=== PATIENT | male | born 1990 | race Caucasian/White ===

== ENCOUNTER 2016-07-26 09:41 | Emergency (ER) | payer SELFPAY ==
--- NOTE | 2016-07-30 11:27 | ER ---
ADMIT: 07/26/2016 RM/LOC: ER [facility] MR#: [id number] [address] [facility] [address] [place] [id number] [place] [address] Emergency Room Report SEX: M AGE: 25 : 1990 DATE: 07/26/2016 ADDENDUM: CHIEF COMPLAINT: Cough. HISTORY OF PRESENT ILLNESS: This 25-year-old, who smokes marijuana all day long, also smokes tobacco 2 packs daily. For the last 2 or 3 days, he just feels like he has had more of a productive cough, feels like his chest is tight and may or may not have a fever at one time. Here he is just a little bit anxious, no acute distress. His sats were 98%-100% on room air. He is not tachycardic. He is slightly tachypneic at times but just when he more or starts to hyperventilate and he even admits that he is a little bit anxious while being here. Chest x-ray is negative, over-read by Dr. Ortiz. I did give him a Xopenex neb, he said this actually made him feel quite a bit better. He has been using someone else's albuterol nebulizer. I told him I would give him the albuterol inhaler in case he feels like he cannot catch his breath. I told him to try to quit smoking tobacco, try to either quit or eliminate smoking marijuana. I feel like this is just exacerbating his symptoms. CLINICAL IMPRESSION: 1. Bronchitis. 2. Anxiety. 3. Tobacco and marijuana usage. CHERYL Brody / Jason Ortiz MD / fercho JOB #: [id number] CC: Jason Ortiz MD, Attending Physician UNKNOWN, Family Physician
== END 2016-07-26 11:47 | disposition home or self-care (01) ==
LOC: ER 09:41
DX: J40 Bronchitis, not specified as acute or chronic (principal); F41.9 Anxiety disorder, unspecified; F12.10 Cannabis abuse, uncomplicated; F17.210 Nicotine dependence, cigarettes, uncomplicated; Z79.899 Other long term (current) drug therapy

== ENCOUNTER 2016-08-28 18:14 | Emergency (ER) | payer SELFPAY ==
--- NOTE | 2016-09-24 21:25 | ER ---
ADMIT: 08/28/2016 RM/LOC: ER [facility] MR#: [id number] [address] [address] [place] [address] Emergency Room Report SEX: M AGE: 25 : 1990 DATE: 08/28/2016 HISTORY OF PRESENT ILLNESS: A 25-year-old comes to the Emergency Department with complaints of unable to catch his breath. He is smoking pot when this sensation started. He describes a tingling around his mouth, his finger tips, and his toes. See T-sheet for history and physical. The patient is diagnosed with anxiety. He was given Benadryl IM in the Emergency Department with resolution of his symptoms. An ABG was done, which showed pH of 7.54, pCO2 of 21, PO2 of 109. The patient was instructed to stop smoking pot and use Benadryl 50 mg every 8 hours if these symptoms were to return. He was also encouraged to find a primary doctor for followup. DIAGNOSIS: Anxiety and hyperventilation. Oscar Voss MD/ fercho JOB #: [id number] CC: Jason Ortiz MD, Attending Physician Micky Carrillo MD, Family Physician
== END 2016-08-28 19:30 | disposition home or self-care (01) ==
LOC: ER 18:14
DX: F41.9 Anxiety disorder, unspecified (principal); F17.210 Nicotine dependence, cigarettes, uncomplicated

== ENCOUNTER 2016-11-20 17:01 | Emergency (ER) | payer SELFPAY ==
--- NOTE | 2016-12-01 16:41 | ER ---
ADMIT: 11/20/2016 RM/LOC: ER [facility] MR#: [id number] [address] [address] [place] [address] Emergency Room Report SEX: M AGE: 26 : 1990 DATE: 11/20/2016 This 26-year-old comes with dysuria for the past 3-4 weeks. Denies sexual activity, but then later said, well maybe he was with somebody. In any event, his UA was unremarkable. I elected to treat him as STD, given him Rocephin and azithromycin. Encouraged to follow up with his primary doctor this week if symptoms persist. Oscar Voss MD/ fercho JOB #: [id number] CC: Jason Ortiz MD, Attending Physician
== END 2016-11-20 18:35 | disposition home or self-care (01) ==
LOC: ER 17:01
DX: R30.0 Dysuria (principal); F17.210 Nicotine dependence, cigarettes, uncomplicated; Z86.19 Personal history of other infectious and parasitic diseases

== ENCOUNTER 2017-02-07 18:00 | Emergency (ER) | payer SELFPAY ==
--- NOTE | 2017-02-08 11:00 | ER ---
ADMIT: 02/07/2017 RM/LOC: ER [facility] MR#: [id number] [address] [address] [place] [address] Emergency Room Report SEX: M AGE: 26 : 1990 DATE: 02/07/2017 CHIEF COMPLAINT: Left testicle pain. HISTORY OF PRESENT ILLNESS: A 26-year-old male presents to the ER with complaints of left testicular pain. States that his pain started approximately 4 days ago. He was at [facility]'s ER yesterday with similar complaints as well as dysuria. They ran a urine, GC chlamydia and all came back unremarkable. He thus currently is being treated for an outbreak of genital herpes with acyclovir. Continues to complain of left testicle pain and swelling yesterday. States he was to get an ultrasound yesterday at [facility], however, he left as he was frightened. Returned home and started googling things. States this happened in the past. He was able to reduce it himself, has never had surgery before. MEDICATIONS: Acyclovir. COURSE IN THE EMERGENCY ROOM: The patient was seen and examined. GENERAL: Afebrile and nontoxic, in mild amount of distress. He is somewhat anxious. GENITALIA: On genital inspection, he is circumcised. He does have an active herpes outbreak. He has left testicular and epididymal tenderness. CHEST: Clear. HEART: Regular. EXTREMITIES: Nontender. There is no pedal edema. SKIN: Warm and dry. Testicular Doppler was obtained, shows no torsion. He has good blood flow, some epididymal cysts. ADMIT: 02/07/2017 RM/LOC: ER [facility] MR#: [id number] [address] [address] [place] [address] Emergency Room Report SEX: M AGE: 26 : 1990 Given his negative GC chlamydia testing at [facility] yesterday, we will empirically treat for epididymitis. Start Cipro. Put him off work for today and tomorrow. Follow up with primary care provider if he is not improving. IMPRESSION: Left epididymitis. DISPOSITION: Discharged home. Ciprofloxacin 500 mg p.o. b.i.d. for 7 days. Elevate the scrotum. Wear supportive underwear. He is to follow up with primary care if not improving. Certainly return with worsening signs or symptoms. Tylenol or Motrin for pain. Continue the acyclovir. Discharged home in stable condition. CHERYL Polanco / Atif Bansal MD / modl JOB #: [id number] CC: Atif Bansal MD, Attending Physician UNKNOWN, Family Physician
== END 2017-02-07 19:47 | disposition home or self-care (01) ==
LOC: ER 18:00
DX: N45.1 Epididymitis (principal); Z79.899 Other long term (current) drug therapy; Z87.891 Personal history of nicotine dependence; Z98.890 Other specified postprocedural states